=== PATIENT | male | born 1995 | race Caucasian/White ===

== ENCOUNTER 2017-08-28 01:15 | Emergency (ER) | payer SELFPAY ==
[~2017-08-28] VITALS: Ht 172.7 cm; Wt 102.5 kg
[2017-08-28 01:22] VITALS: TEMP 36.8; Ht 172.7 cm; Wt 102.5 kg
--- NOTE | 2017-08-28 01:24 | EMERGENCY ROOM VISIT NOTE ---
History Report prepared by Sakshi: Mateo Soliz Under the Supervision of: Dr. Veronica Leon D.O. First contact with patient: 01:17 Stated Complaint: ALCOHOL/SUICIDAL IDEATION History of Present Illness The patient is a 22 year old male who presents to the Emergency Room with complaints of constant suicidal ideations beginning today. The patient states that he was found drinking downtown. He notes that he had two shots of fireball and two monkey boys tonight. He reports that his girlfriend recently broke up with him, which has caused him to become more depressed. The patient states that he has been having suicidal thoughts recently and has a plan of crashing his car at 90mph. He notes that he has not tried to commit suicide in the past. In addition to his history of depression, he also has a history of anxiety and a heart problem. He reports that he is unsure what heart problem. HPI limited secondary to alcohol intoxication. Source of History: patient History Limited By: intoxication (alcohol) Onset: today Position: head Quality: other (suicidal ideations) Timing: constant Note: The patient states that he has been having suicidal thoughts and has a plan on how he would commit suicide. Review of Systems ROS limited secondary to alcohol intoxication. Past Medical & Surgical Medical Problems: (1) Anxiety (2) Depression Family History No pertinent family history stated. Social History Alcohol Use: occasionally Marital Status: single Occupation Status: employed Current/Historical Medications No Active Prescriptions or Reported Meds Allergies Coded Allergies: No Known Allergies (Unverified , 08/28/17) Physical Exam Vital Signs Date Time Temp Pulse Resp B/P (MAP) Pulse Ox O2 Delivery O2 Flow Rate FiO2 08/28/17 05:49 84 08/28/17 05:36 74 25 97 Room Air 08/28/17 05:06 80 18 91 Room Air 08/28/17 05:01 123/64 08/28/17 04:36 83 17 92 Room Air 08/28/17 04:31 109/72 08/28/17 04:06 86 18 95 Room Air 08/28/17 04:04 132/59 08/28/17 03:36 79 16 92 Room Air 08/28/17 03:31 101/55 08/28/17 03:30 85 19 91 Room Air 08/28/17 03:01 130/63 08/28/17 03:00 87 22 92 Room Air 08/28/17 02:31 130/56 08/28/17 02:30 89 23 92 Room Air 08/28/17 02:01 117/59 08/28/17 02:00 90 16 91 Room Air 08/28/17 01:36 90 08/28/17 01:31 120/60 08/28/17 01:30 91 20 08/28/17 01:22 36.8 92 20 137/76 93 Room Air Physical Exam General: Pleasant, cooperative, smells of alcohol. HEENT: Head - normocephalic and atraumatic Pupils 2mm and sluggishly reactive to light. Extraocular eye muscles are intact, and sclera are anicteric. Nose - moist nasal mucosa without discharge. Mouth - moist buccal mucosa. Oropharynx is nonerythematous and there is no tonsillar exudate or edema noted. Neck: Supple; no JVD, nuchal rigidity, cervical lymphadenopathy. Heart: Regular rhythm and tachycardic. There is a normal S1 and S2 with no murmurs, clicks, or gallops appreciated. Lungs: Clear to auscultation bilaterally with no wheezes, rales, or rhonchi. Abdomen: Soft, completely nontender, nondistended, with good bowel sounds. There are no palpable pulsatile masses or hepatosplenomegaly. There is no guarding, rigidity, or rebound noted. Extremities: No evidence of cyanosis, clubbing, or edema. There are easily palpable peripheral pulses. Skin: warm and dry with good turgor and no rashes. Psych: Admits to suicidal thoughts with plant but no attempt. Medical Decision & Procedures Laboratory Results 08/28/17 01:46 08/28/17 01:46 Test 08/28/17 01:46 Red Blood Count 4.96 M/uL (4.7-6.1) Mean Corpuscular Volume 88.5 fL (80-100) Mean Corpuscular Hemoglobin 31.7 pg (25-34) Mean Corpuscular Hemoglobin Concent 35.8 g/dl (32-36) RDW Standard Deviation 40.0 fL (36.4-46.3) RDW Coefficient of Variation 12.5 % (11.5-14.5) Mean Platelet Volume 10.7 fL (7.4-10.4) Anion Gap 6.0 mmol/L (3-11) Est Creatinine Clear Calc Drug Dose 189.3 ml/min Estimated GFR () > 150.0 Estimated GFR (Non- 133.2 BUN/Creatinine Ratio 16.4 (10-20) Calcium Level 8.1 mg/dl (8.5-10.1) Total Bilirubin 0.3 mg/dl (0.2-1) Direct Bilirubin 0.1 mg/dl (0-0.2) Aspartate Amino Transf (AST/SGOT) 14 U/L (15-37) Alanine Aminotransferase (ALT/SGPT) 30 U/L (12-78) Alkaline Phosphatase 47 U/L (45-117) Total Protein 6.9 gm/dl (6.4-8.2) Albumin 3.5 gm/dl (3.4-5.0) Thyroid Stimulating Hormone (TSH) 1.280 uIu/ml (0.300-4.500) Salicylates Level < 1.7 mg/dl (2.8-20) Acetaminophen Level < 2 ug/ml (10-30) Ethyl Alcohol mg/dL 178.0 mg/dl (0-3) Laboratory results per my review. ED Course 0118: Past medical records reviewed. The patient was evaluated in room B4. A complete history and physical exam was performed. 0237: The patient's alcohol is 178. He will be medically cleared at 0500 and will be evaluated by psych case management at that time. 0357: I reevaluated the patient. He is sound asleep and snoring. His vitals are stable. 0454: I rechecked the patient. He is currently being woken up for a psych evaluation. Emmanuelle from [facility] will come down for the evaluation. 0520: The patient is currently being evaluated by Emmanuelle from [facility] 0542: Discussed the patient's case with Emmanuelle from [facility] 0611: I reevaluated and updated the patient. He is willing to sign in voluntarily for a duel diagnosis program for his alcoholism and suicidal thoughts. 0730: The patient was signed out to Dr. Esqueda at the change of shift. Medical Decision The patient is a 22 year old male who presents to the Emergency Room with complaints of constant suicidal ideations beginning today. Differential diagnoses include: alcohol overdose, drug intoxication, hypoglycemia, head injury, suicide attempt, mood disorder, and thought disorder. Lab Results Show: Normal white count. Normal H&H. Normal TSH and LFTs. Glucose 104. Normal renal function. Alcohol 178. Aspirin and Tylenol levels negative. The patient was brought to the emergency department as an alcohol overdose. He made suicidal statements to EMS on the way here to the hospital. Upon arrival here in the emergency department, the patient admits to significant alcohol use and states that he has frequent thoughts of suicide and has had plans but no attempts. The patient does suffer from anxiety and depression. He does take Zoloft. He also admits to significant alcohol abuse. The patient was allowed to sober up for a period of time. Once he was medically cleared, the patient was evaluated by staff from [facility] They felt that the patient would benefit from inpatient psychiatric care. They also thought he may benefit from rehab. About the possibility of dual diagnosis placement. The patient is willing to do this voluntarily. The bed search will begin. The case was signed out to Dr. Esqueda a change of shift. Blood Pressure Screening Patient's blood pressure: Normal blood pressure Blood pressure disposition: Did not require urgent referral Impression Primary Impression: Alcohol overdose Additional Impression: Suicidal ideation Scribe Attestation The scribe's documentation has been prepared under my direction and personally reviewed by me in its entirety. I confirm that the note above accurately reflects all work, treatment, procedures, and medical decision making performed by me. Departure Information Dispostion Still a Patient Prescriptions No Active Prescriptions or Reported Meds Problem Qualifiers Primary Impression: Alcohol overdose Encounter type: initial encounter Injury intent: accidental or unintentional Qualified Codes: T51.91XA - Toxic effect of unspecified alcohol , accidental (unintentional), initial encounter
[2017-08-28 02:04] LABS: HEMATOCRIT 43.9 % (42-52); HEMOGLOBIN 15.7 g/dL (14.0-18.0); MEAN CELL VOLUME 88.5 fL (80-100); MEAN CORPUSCULAR HEMOGLOBIN 31.7 pg (25-34); MEAN CORPUSCULAR HGB CONC 35.8 g/dl (32-36); MEAN PLATELET VOLUME 10.7 fL (7.4-10.4); PLATELET COUNT 194 K/uL (130-400); RED CELL DISTRIBUTION WIDTH CV 12.5 % (11.5-14.5); WHITE BLOOD COUNT 8.42 K/uL (4.8-10.8)
[2017-08-28 02:29] LABS: ALBUMIN 3.5 gm/dl (3.4-5.0); ALT/SGPT 30 U/L (12-78); AST/SGOT 14 U/L (15-37); BLOOD UREA NITROGEN 12 mg/dl (7-18); CALCIUM 8.1 mg/dl (8.5-10.1); CARBON DIOXIDE 26 mmol/L (21-32); CREATININE 0.71 mg/dl (0.60-1.40); GLUCOSE 104 mg/dl (70-99); POTASSIUM 3.5 mmol/L (3.5-5.1); SODIUM 141 mmol/L (136-145)
[2017-08-28 02:39] LABS: ALKALINE PHOSPHATASE 47 U/L (45-117); TOTAL PROTEIN 6.9 gm/dl (6.4-8.2)
--- NOTE | 2017-08-28 11:13 | EMERGENCY ROOM VISIT NOTE ---
ED Visit Note First contact with patient: 10:56 I received this patient at change of shift signout from Dr. Leon. Please see her note for initial a history and physical. The patient presented to the emergency department for multiple complaints including alcohol intoxication as well as depression and suicidal ideation. The patient was medically cleared in the emergency department. He was felt to be a good candidate for possible inpatient management of his mental health as well as his substance abuse issues. He was evaluated multiple times. He was awake alert and not clinically intoxicated. He was evaluated by our mental health delegate in the emergency department. He was felt to be a good candidate for outpatient management and patient was agreeable for this. He was given follow-up information for both alcohol abuse as well as his mental health issues. He was encouraged to avoid any further alcoholic beverages. He was also encouraged to follow-up with his therapist as soon as possible or call crisis or return to the emergency department immediately if symptoms change worsen or the need arises.
[2017-08-28 11:44] VITALS: BP 138/67; PULSE 95; O2SAT 96
== END 2017-08-28 11:46 | disposition home or self-care (01) ==
LOC: EDBD 01:15 → C.EDB 01:16 → C.EDA 11:46
DX: T51.91XA Toxic effect of unspecified alcohol, accidental (unintentional), initial encounter (principal); R45.851 Suicidal ideations; Y90.6 Blood alcohol level of 120-199 mg/100 ml; F41.8 Other specified anxiety disorders; Z79.899 Other long term (current) drug therapy